=== PATIENT | female | born 1980 | race American Indian/Alaskan Native ===

== ENCOUNTER 2019-06-28 22:47 | Emergency (ER) | payer OTHER ==
[2019-06-28] MEDS ORDERED: NACL 0.9% 1000 ML 1,000 ML IV ONE (23:19)
--- NOTE | 2019-06-28 23:25 | Emergency Department Report ---
HPI - General Chief Complaint: Altered Mental Status Time Seen by Provider: 06/28/19 23:09 - HPI HPI: Room 7 The patient is a 38-year-old female presented with a chief complaint of shortness of breath after smoking marijuana. The patient states this evening she smokes marijuana called "bubble gum." The patient states shortly after she became very high also developed shortness of breath and a very dry throat. Patient denies chest pain but admits to palpitations. The patient is a very poor historian as she is currently intoxicated and tangential. Location: [See above] Duration: [See above] Quality: [See above] Severity: [See above] Timing: [See above] Context: [See above] Modifying factors: [See above] Associated signs and symptoms: [see above] ED Past Medical Hx - Past Medical History Previous Medical History?: Yes Hx Psychiatric Treatment: (Depression) Additional medical history: Anemia - Surgical History Additional Surgical History: - Family History Family history: no significant - Social History Smoking Status: Former Smoker (none 7 years) Substance Use Type: Alcohol (occasional), Marijuana ED Review of Systems ROS: Stated complaint: SOB Other details as noted in HPI Constitutional: no symptoms reported Eyes: denies: eye pain ENT: as per HPI Respiratory: shortness of breath Cardiovascular: palpitations. denies: chest pain Endocrine: no symptoms reported Gastrointestinal: denies: abdominal pain Genitourinary: denies: dysuria Musculoskeletal: denies: back pain Neurological: denies: headache Physical Exam - Physical Exam Vital Signs: Vital Signs 06/28/19 23:13 Temperature 97.9 F Pulse Rate 121 H Respiratory 15 Rate Blood Pressure 162/105 [Left] O2 Sat by Pulse 98 Oximetry Physical Exam: GENERAL: The patient is well-developed well-nourished []. [] HEENT: Normocephalic. Atraumatic. Extraocular motions are intact. Patient has moist mucous membranes. NECK: Supple. Trachea midline CHEST/LUNGS: Clear to auscultation. There is no respiratory distress noted. HEART/CARDIOVASCULAR: Regular. There is tachycardia with frequent ectopy. Frequent PVCs visualized on monitor. There is no gallop rub or murmur. ABDOMEN: Abdomen is soft, nontender. Patient has normal bowel sounds. There is no abdominal distention. SKIN: There is no rash. There is no edema. There is no diaphoresis. NEURO: The patient is awake and oriented but obviously intoxicated. The patient is intermittently cooperative. The patient has no focal neurologic deficits. The patient has normal speech MUSCULOSKELETAL: There is no evidence of acute injury. ED Course Vital Signs 06/28/19 23:13 Temperature 97.9 F Pulse Rate 121 H Respiratory 15 Rate Blood Pressure 162/105 [Left] O2 Sat by Pulse 98 Oximetry - Consultations Consultation #1: 06/29/19 01:48 [facility] paged 06/29/19 01:[address] Barillas-will call back 06/29/19 02:[address] Barillas and Dr. Paulino ([facility])- will accept patient in transfer. Will arrange transportation ED Medical Decision Making - Lab Data Result diagrams: 06/29/19 00:16 06/29/19 00:16 Laboratory Tests 06/28/19 06/28/19 06/29/19 23:15 23:15 00:16 WBC 15.2 H RBC 4.73 Hgb 13.2 Hct 39.5 MCV 84 MCH 28 MCHC 33 RDW 12.9 L Plt Count 247 Lymph % (Auto) 11.9 L [place] % (Auto) 6.1 Eos % (Auto) 0.1 Baso % (Auto) 0.3 Lymph # 1.8 [place] # 0.9 H Eos # 0.0 Baso # 0.1 Seg Neutrophils % 81.6 H Seg Neutrophils # 12.4 H PT INR Sodium Potassium Chloride Carbon Dioxide Anion Gap BUN Creatinine Estimated GFR BUN/Creatinine Ratio Glucose Calcium Magnesium Total Bilirubin AST ALT Alkaline Phosphatase Total Creatine Kinase CK-MB (CK-2) CK-MB (CK-2) Rel Index Troponin T NT-Pro-B Natriuret Pep Total Protein Albumin Albumin/Globulin Ratio Free T4 HCG, Qual Urine Color Yellow Urine Turbidity Slightly-cloudy Urine pH 5.0 Ur Specific [place] 1.015 Urine Protein <15 mg/dl Urine Glucose (UA) Neg Urine Ketones Neg Urine Blood Mod Urine Nitrite Neg Urine Bilirubin Neg Urine Urobilinogen < 2.0 Ur Leukocyte Esterase Neg Urine WBC (Auto) 1.0 Urine RBC (Auto) 3.0 U Epithel Cells (Auto) 2.0 Urine Mucus Few Urine Opiates Screen Presumptive negative Urine Methadone Screen Presumptive negative Ur Barbiturates Screen Presumptive negative Ur Phencyclidine Scrn Presumptive negative Ur Amphetamines Screen Presumptive negative U Benzodiazepines Scrn Presumptive negative Urine Cocaine Screen Presumptive negative U Marijuana (THC) Screen Presumptive positive Drugs of Abuse Note Disclamer Plasma/Serum Alcohol 06/29/19 06/29/19 06/29/19 00:16 00:16 00:16 WBC RBC Hgb Hct MCV MCH MCHC RDW Plt Count Lymph % (Auto) [place] % (Auto) Eos % (Auto) Baso % (Auto) Lymph # [place] # Eos # Baso # Seg Neutrophils % Seg Neutrophils # PT 13.4 INR 1.05 Sodium 139 Potassium 3.2 L Chloride 101.0 Carbon Dioxide 19 L Anion Gap 22 BUN 12 Creatinine 0.7 Estimated GFR > 60 BUN/Creatinine Ratio 17 Glucose 136 H Calcium 9.4 Magnesium 2.10 Total Bilirubin 0.30 AST 13 ALT 9 Alkaline Phosphatase 61 Total Creatine Kinase 90 CK-MB (CK-2) < 1.0 CK-MB (CK-2) Rel Index 1.1 Troponin T < 0.010 NT-Pro-B Natriuret Pep 31.35 Total Protein 8.2 Albumin 4.7 Albumin/Globulin Ratio 1.3 Free T4 1.06 HCG, Qual Urine Color Urine Turbidity Urine pH Ur Specific [place] Urine Protein Urine Glucose (UA) Urine Ketones Urine Blood Urine Nitrite Urine Bilirubin Urine Urobilinogen Ur Leukocyte Esterase Urine WBC (Auto) Urine RBC (Auto) U Epithel Cells (Auto) Urine Mucus Urine Opiates Screen Urine Methadone Screen Ur Barbiturates Screen Ur Phencyclidine Scrn Ur Amphetamines Screen U Benzodiazepines Scrn Urine Cocaine Screen U Marijuana (THC) Screen Drugs of Abuse Note Plasma/Serum Alcohol 06/29/19 06/29/19 00:16 00:16 WBC RBC Hgb Hct MCV MCH MCHC RDW Plt Count Lymph % (Auto) [place] % (Auto) Eos % (Auto) Baso % (Auto) Lymph # [place] # Eos # Baso # Seg Neutrophils % Seg Neutrophils # PT INR Sodium Potassium Chloride Carbon Dioxide Anion Gap BUN Creatinine Estimated GFR BUN/Creatinine Ratio Glucose Calcium Magnesium Total Bilirubin AST ALT Alkaline Phosphatase Total Creatine Kinase CK-MB (CK-2) CK-MB (CK-2) Rel Index Troponin T NT-Pro-B Natriuret Pep Total Protein Albumin Albumin/Globulin Ratio Free T4 HCG, Qual Negative Urine Color Urine Turbidity Urine pH Ur Specific [place] Urine Protein Urine Glucose (UA) Urine Ketones Urine Blood Urine Nitrite Urine Bilirubin Urine Urobilinogen Ur Leukocyte Esterase Urine WBC (Auto) Urine RBC (Auto) U Epithel Cells (Auto) Urine Mucus Urine Opiates Screen Urine Methadone Screen Ur Barbiturates Screen Ur Phencyclidine Scrn Ur Amphetamines Screen U Benzodiazepines Scrn Urine Cocaine Screen U Marijuana (THC) Screen Drugs of Abuse Note Plasma/Serum Alcohol < 0.01 - EKG Data -: EKG Interpreted by Me EKG shows normal: sinus rhythm Rate: tachycardia (125 bpm) - EKG Data When compared to previous EKG there are: previous EKG unavailable Interpretation: other (frequent PVCs) - Radiology Data Radiology results: image reviewed (chest x-ray) interpreted by me: Chest x-ray-no focal infiltrates, no pneumothorax - Differential Diagnosis intoxication, PVCs, dysrhythmia, Critical care attestation.: If time is entered above; I have spent that time in minutes in the direct care of this critically ill patient, excluding procedure time. ED Disposition Clinical Impression: Marijuana abuse, Palpitations, Bigeminy Disposition: DC/TX-70 ANOTHER TYPE HLTHCARE Is pt being admited?: No Does the pt Need Aspirin: No Condition: Fair Time of Disposition: 02:09 (awaiting transport)
[2019-06-28 23:46] LABS: Bilirubin,Urine NEG (Negative); Blood,Urine MOD (Negative); Color,Urine Yellow (Yellow); Mucus,Urine FEW /HPF; Protein,Urine <15 mg/dL mg/dL (Negative); Urobilinogen,Urine < 2.0 mg/dL (<2.0)
[2019-06-28 23:52] LABS: Amphetamine Screen,Urine PRESUMPTIVE NEGATIVE; Benzodiazepines Screen,Urine PRESUMPTIVE NEGATIVE; Cocaine Screen,Urine PRESUMPTIVE NEGATIVE; Methadone Screen,Urine PRESUMPTIVE NEGATIVE; Opiate Screen,Urine PRESUMPTIVE NEGATIVE
[2019-06-29 00:13] LABS: Cannabinoid Screen,Urine PRESUMPTIVE POSITIVE
[2019-06-29 00:39] LABS: Basophils # (Auto) 0.1 K/mm3 (0.0-0.1); Basophils % (Auto) 0.3 % (0.0-1.8); Eosinophils % (Auto) 0.1 % (0.0-4.3); Hematocrit 39.5 % (30.3-42.9); Hemoglobin 13.2 gm/dl (10.1-14.3); Lymphocytes # (Auto) 1.8 K/mm3 (1.2-5.4); Lymphocytes % (Auto) 11.9 % (13.4-35.0); Mean Corpuscular HGB Conc 33 % (30-34); Mean Corpuscular Volume 84 fl (79-97); Monocytes # (Auto) 0.9 K/mm3 (0.0-0.8); Monocytes % (Auto) 6.1 % (0.0-7.3); Platelet Count 247 K/mm3 (140-440); Red Blood Count 4.73 M/mm3 (3.65-5.03); Red Cell Distribution Width 12.9 % (13.2-15.2)
[2019-06-29 00:50] LABS: INR 1.05 (0.87-1.13)
[2019-06-29 01:09] LABS: Alanine Aminotransferase 9 units/L (7-56); Albumin 4.7 g/dL (3.9-5); BUN/Creatinine Ratio 17; Blood Urea Nitrogen 12 mg/dL (7-17); Calcium 9.4 mg/dL (8.4-10.2); Hemolysis Index 3
[2019-06-29 01:11] LABS: Creatine Kinase MB < 1.0 ng/mL (0.0-4.0); Free T4 (Free Thyroxine) 1.06 ng/dL (0.76-1.46)
[2019-06-29] MEDS ORDERED: K-DUR PO ONE (01:29)
[2019-06-29 02:14] VITALS: BP 148/99
--- NOTE | 2019-06-29 03:55 | XRay Report ---
CHEST 1 VIEW 0124 INDICATION / CLINICAL INFORMATION: shortness of breath. COMPARISON: None available. FINDINGS: SUPPORT DEVICES: None HEART / MEDIASTINUM: No significant abnormality. LUNGS / PLEURA: No significant pulmonary or pleural abnormality. No pneumothorax. ADDITIONAL FINDINGS: No significant additional findings. IMPRESSION: No significant acute abnormality Signer Name: Shorty Rothman MD Signed: 06/29/2019 3:50 AM Workstation Name: [id number]
== END 2019-06-29 03:02 | disposition other institution (70) ==
LOC: ED 22:47
DX: R00.0 Tachycardia, unspecified (principal); R00.8 Other abnormalities of heart beat; F32.9 Major depressive disorder, single episode, unspecified; F12.10 Cannabis abuse, uncomplicated; Z91.018 Allergy to other foods; Z91.09 Other allergy status, other than to drugs and biological substances; Z87.891 Personal history of nicotine dependence; Z86.2 Personal history of diseases of the blood and blood-forming organs and certain disorders involving the immune mechanism
CPT/HCPCS: 36415; 71045; 80053; 80307; 81001; 82550; 82553; 83735; 83880; 84439; 84443; 84484; 84703; 85025; 85610; 93005; 93010; 99285; J7030; 80320; G0480